=== PATIENT | female | born 1970 | race Caucasian/White ===

== ENCOUNTER 2018-09-24 06:39 | Emergency (ER) ==
[2018-09-24 06:49] VITALS: BP 122/88; TEMP 98.1; BMI 31.8
[2018-09-24] MEDS ORDERED: SODIUM CHLORIDE 1,000 ML IV STA ×3 (07:09→17:02)
[2018-09-24] MEDS ORDERED: MORPHINE 4 MG/ML SYRINGE IVP STA (07:09)
[2018-09-24] MEDS ORDERED: ZOFRAN 4 MG/2 ML IVP STA (07:09)
--- NOTE | 2018-09-24 07:57 | CT ---
Exam: CT abdomen pelvis without intravenous contrast. Comparison: None available. Reason for exam: Lower abdominal pain. FINDINGS: Image interpretation is limited by the lack of intravenous contrast administration. No pleural effusion, or focal consolidation in the partially imaged lung bases. The gallbladder has been removed. Heterogeneous appearing mass in the region of the pancreatic body measuring approximately 8 cm x 6.2 cm incompletely evaluated on this exam. No hydronephrosis, hydroureter or nephrolithiasis in either kidney. The spleen appears grossly unremarkable. The mass in the left upper abdomen abuts the left adrenal gland without a significant separation of t he fat plane. The right adrenal gland appears grossly unremarkable. No focal small bowel dilatation or transition point. The appendix is unremarkable. No intra-abdominal free air or pelvic free fluid. The bladder appears grossly unremarkable. No suspicious appearing osteoblastic or osteolytic lesions. Mildly prominent appearing soft tissue and periaortic, retroperitoneum incompletely evaluated on this exam. Impression: 1. Heterogeneous appearing mass in the region of the pancreatic body/upper abdomen. MRI pancreatic mass protocol with and without intravenous contrast is recommended prior to consultation for biopsy. 2. Nonspecific soft tissue in the periaortic, retroperitoneal region likely represents prominent lym ph nodes.
--- NOTE | 2018-09-24 08:23 | ED.PDOC ---
General ED Provider: Dr. THA CHARLES Chief Complaint: Abdominal Pain Stated Complaint: abdominal pain lower and central abdomen with some radiation of pain to the left shoulder associated with nausea .onset 1 day Time Seen by Physician: 07:00 (on arrival was seen with ramona Riggs) Mode of Arrival: Walk-In Information Source: Patient Exam Limitations: No limitations Nursing and Triage Documentation Reviewed and Agree: Yes Does patient meet sepsis criteria?: No System Inflammatory Response Syndrome: Not Applicable Sepsis Protocol: For patient's 13 years and over: Temp is 96.8 and below OR 101 and greater Pulse >90 BPM Resp >20/minute Acutely Altered Mental Status Are patient's symptoms suggestive of a new infection, such as: -Pneumonia -Skin, Soft Tissue -Endocarditis -UTI -Bone, Joint Infection -Implantable Device -Acute Abdominal Infection -Wound Infection -Meningitis -Blood Stream Catheter Infection -Unknown GI Complaint Exam - Abdominal Pain Complaint/Exam Onset: Gradual Duration: 1 DAY Symptoms Are: Still present Timing: Constant Initial Severity: Moderate Current Severity: Moderate Location of Pain: RLQ, LLQ, Epigastric Radiates To: Denies: Chest, Back, Flank, LLQ, RLQ, Inguinal Character: Reports: Cramping Aggravating: Reports: None Alleviating: Reports: None Associated Signs and Symptoms: Reports: Nausea. Denies: Diaphoresis, Fever, Cough, Chest pain, Dizziness, Back pain, Constipation, Blood in stool, Dysuria, Urinary frequency, Decreased urine output, Decreased appetite, Vaginal bleeding , Vaginal discharge, Vomiting, Diarrhea, Sore throat, Decreased activity AAA Risk Factors: Reports: None Cardiac Risk Factors: Reports: None Ectopic Risk Factors: Reports: None Ovarian Torsion Risk Factors: Reports: Reproductive age Surgical Obstruction Risk Factors: Reports: None Related Surgical History: Reports: None Patient Rh Status: Unknown Abdominal Findings: Present: None Differential Diagnoses: Appendicitis, Bowel Obstruction, Constipation, Pancreatitis, Irritable Bowel Syndrome, Renal Colic, Ureteral Stone, GB, Ovarian Cyst Quality Indicators for AMI: EKG in 10min. Quality Indicators for Cardiac Chest Pain: EKG in 10min. Quality Indicator For Non-Traumatic Chest Pain/Syncope: EKG Performed Review of Systems - Review Of Systems Constitutional: Reports: No symptoms Eyes: Reports: No symptoms Ears, Nose, Mouth, Throat: Reports: No symptoms Respiratory: Reports: No symptoms Cardiac: Reports: No symptoms GI: Reports: Abdominal pain, Nausea : Reports: No symptoms Musculoskeletal: Reports: No symptoms Skin: Reports: No symptoms Neurological: Reports: No symptoms Endocrine: Reports: No symptoms Hematologic/Lymphatic: Reports: No symptoms All Other Systems: Reviewed and Negative Past Medical History - Past Medical History Previously Healthy: Yes Endocrine: Reports: None Cardiovascular: Reports: None Respiratory: Reports: None Hematological: Reports: None Gastrointestinal: Reports: None Genitourinary: Reports: None Neuro/Psych: Reports: None Musculoskeletal: Reports: None Cancer: Reports: None Last Menstrual Period: PT HAS HAD A HYSTERECTOMY - Surgical History General Surgical History: Reports: None - Family History Family History: Reports: None - Social History Smoking Status: Never smoker Hx Substance Use: No Alcohol Screening: Occasionally - Immunizations Tetanus Shot up to Date: Yes Physical Exam - Physical Exam Appearance: Ill-appearing Ill-appearing: Mild Pain Distress: Moderate Eyes: MARILEE, EOMI, Conjunctiva clear ENT: Ears normal, Nose normal, Oropharynx normal Respiratory: Airway patent, Breath sounds clear, Breath sounds equal, Respirations nonlabored Cardiovascular: RRR, Pulses normal, No rub, No murmur GI/: Tender (ABDOMEN BUT NO REBOUND ) Musculoskeletal: Normal strength, ROM intact, No edema, No calf tenderness Skin: Warm, Dry, Normal color Neurological: Sensation intact, Motor intact, Reflexes intact, Cranial nerves intact, Alert, Oriented Psychiatric: Affect appropriate, Mood appropriate Re-Evaluation - Re-Evaluation Time of Re-Evaluation: 08:30 Status: Improved Vital Signs Stable: Yes Pain Level: 0 Appearance: NAD Lungs: Clear Skin: Warm and Dry Neuro: Alert and Oriented X3 CV: RRR Additional Comments: C.T. REPORT WWAS DISCUSSED VANI Physician Notification - Case Discussed Physician Notified: gato AGARWAL Time of Notification: 16:34 (TRANSFER ) Critical Care Note - Critical Care Note Total Time (mins): 0 Course - Course Hematology/Chemistry: 09/24/18 07:20 09/24/18 07:20 Orders, Labs, Meds: Lab Review 09/24/18 09/24/18 09/24/18 07:20 07:20 07:20 WBC 8.05 RBC 4.23 Hgb 13.8 Hct 38.7 MCV 91.5 MCH 32.6 H MCHC 35.7 H RDW Coeff of Armando 11.6 Plt Count 300 Immature Gran % (Auto) 0.2 Neut % (Auto) 63.3 Lymph % (Auto) 29.1 [place]eton % (Auto) 5.2 Eos % (Auto) 1.5 Baso % (Auto) 0.7 Immature Gran # (Auto) 0.0 Neut # (Auto) 5.1 Lymph # (Auto) 2.3 Teton # (Auto) 0.4 Eos # (Auto) 0.1 Baso # (Auto) 0.1 Sodium 135.7 Potassium 3.92 Chloride 102.8 Carbon Dioxide 24.0 Anion Gap 12.82 BUN 10.5 Creatinine 0.90 Estimated GFR (MDRD) 67.00 BUN/Creatinine Ratio 11.66 Glucose 120.1 H Lactic Acid Calcium 9.65 Total Bilirubin 0.77 AST 30.2 ALT 20.8 Alkaline Phosphatase 72.2 Total Protein 8.34 H Albumin 4.81 Globulin 3.53 Albumin/Globulin Ratio 1.36 Amylase 85.6 Lipase 128.6 Procalcitonin < 0.05 Urine Color Urine Clarity Urine pH Ur Specific Ralph Urine Protein Urine Glucose (UA) Urine Ketones Urine Blood Urine Nitrite Urine Bilirubin Urine Urobilinogen Ur Leukocyte Esterase Urine Microscopic RBC Ur Squamous Epith Cells Urine Bacteria Influ A Molecular Assay Influ B Molecular Assay 09/24/18 09/24/18 09/24/18 07:20 07:20 07:35 WBC RBC Hgb Hct MCV MCH MCHC RDW Coeff of Armando Plt Count Immature Gran % (Auto) Neut % (Auto) Lymph % (Auto) Teton % (Auto) Eos % (Auto) Baso % (Auto) Immature Gran # (Auto) Neut # (Auto) Lymph # (Auto) Teton # (Auto) Eos # (Auto) Baso # (Auto) Sodium Potassium Chloride Carbon Dioxide Anion Gap BUN Creatinine Estimated GFR (MDRD) BUN/Creatinine Ratio Glucose Lactic Acid 0.96 Calcium Total Bilirubin AST ALT Alkaline Phosphatase Total Protein Albumin Globulin Albumin/Globulin Ratio Amylase Lipase Procalcitonin Urine Color Yellow Urine Clarity Clear Urine pH 5.5 Ur Specific Ralph 1.010 Urine Protein Negative Urine Glucose (UA) Negative Urine Ketones Negative Urine Blood Trace-intact Urine Nitrite Negative Urine Bilirubin Negative Urine Urobilinogen 0.2 Ur Leukocyte Esterase Negative Urine Microscopic RBC 0-2 Ur Squamous Epith Cells 50-100 Urine Bacteria Trace Influ A Molecular Assay Negative by naat Influ B Molecular Assay Negative by naat Orders Category Date Time Status NPO REMINDER: IMAGING ONCE CARE 09/24/18 08:35 Completed NPO REMINDER: IMAGING ONCE CARE 09/24/18 13:08 Completed ED IV/MEDIPORT/POWERPORT .ONCE EMERGENCY 09/24/18 07:08 Active AMYLASE Stat LAB 09/24/18 07:20 Completed BLOOD CULTURE (ED ONLY) Stat LAB 09/24/18 07:20 Received CBC W/ AUTO DIFF Stat LAB 09/24/18 07:20 Completed COMPREHENSIVE METABOLIC PANEL Stat LAB 09/24/18 07:20 Completed FLU A/B MOLECULAR Stat LAB 09/24/18 07:20 Completed LACTIC ACID Stat LAB 09/24/18 07:20 Completed LIPASE Stat LAB 09/24/18 07:20 Completed MOLECULAR GROUP A STREP Stat LAB 09/24/18 07:20 Completed PROCALCITONIN Stat LAB 09/24/18 07:20 Completed URINALYSIS C & S IF INDICATED Stat LAB 09/24/18 07:35 Completed 0.9 % Sodium Chloride [Saline Flush] MEDS 09/24/18 07:08 Active 1 syr IVF PRN PRN Hydromorphone HCl [Dilaudid 0.5 mg/0.5 ml Syringe] MEDS 09/24/18 08:39 Discontinued 0.5 mg IVP ONCE STA Hydromorphone HCl [Dilaudid 0.5 mg/0.5 ml Syringe] MEDS 09/24/18 13:28 Discontinued 0.5 mg IVP ONCE STA Morphine Sulfate [Morphine 2 mg/ml Syringe] MEDS 09/24/18 10:32 Discontinued 4 mg IVP ONCE STA Morphine Sulfate [Morphine 4 mg/ml Syringe] MEDS 09/24/18 10:34 Discontinued 4 mg .ROUTE .STK-MED ONE Morphine Sulfate [Morphine 4 mg/ml Syringe] MEDS 09/24/18 07:09 Discontinued 4 mg IVP ONCE STA Ondansetron HCl/Pf [Zofran 4 mg/2 ml] MEDS 09/24/18 10:42 Discontinued 4 mg .ROUTE .STK-MED ONE Ondansetron HCl/Pf [Zofran 4 mg/2 ml] MEDS 09/24/18 07:09 Discontinued 8 mg IVP ONCE STA Promethazine HCl [Phenergan 25 mg/ml Vial] MEDS 09/24/18 15:57 Discontinued 25 mg .ROUTE .STK-MED ONE Promethazine HCl [Phenergan 25 mg/ml Vial] 25 mg MEDS 09/24/18 15:41 Discontinued 0.9 % Sodium Chloride [Sodium Chloride] 50 ml IV ONCE Sodium Chloride 0.9% [Sodium Chloride] 1,000 ml MEDS 09/24/18 07:09 Discontinued IV BOLUS Sodium Chloride 0.9% [Sodium Chloride] 1,000 ml MEDS 09/24/18 13:[address] ABDOMEN W/WO CONTRAST Stat RADS 09/24/18 13:[address] ABDOMEN/PELVIS WO CONTRAST Stat RADS 09/24/18 07:08 Completed MRI ABDOMEN W/WO CONTRAST Stat RADS 09/24/18 08:33 Ordered U/S PELVIS MYERS VAGINAL/NON OB Stat RADS 09/24/18 07:10 Completed Medications Generic Name Dose Route Start Last Admin Trade Name Freq PRN Reason Stop Dose Admin Sodium Chloride 1 syr 09/24/18 07:08 09/24/18 08:48 Saline Flush IVF 1 syr PRN PRN Administration To flush IV Discontinued Medications Generic Name Dose Route Start Last Admin Trade Name Freq PRN Reason Stop Dose Admin Hydromorphone HCl 0.5 mg 09/24/18 08:39 09/24/18 08:46 Dilaudid 0.5 Mg/0.5 Ml Syringe IVP 09/24/18 08:40 0.5 mg ONCE STA Administration Hydromorphone HCl 0.5 mg 09/24/18 13:28 09/24/18 13:33 Dilaudid 0.5 Mg/0.5 Ml Syringe IVP 09/24/18 13:29 0.5 mg ONCE STA Administration Sodium Chloride 1,000 mls @ 1,000 mls/hr 09/24/18 07:09 09/24/18 07:58 Sodium Chloride IV 09/24/18 08:08 1,000 mls/hr BOLUS STA Administration Sodium Chloride 1,000 mls @ 1,000 mls/hr 09/24/18 13:28 09/24/18 13:33 Sodium Chloride IV 09/24/18 14:27 1,000 mls/hr BOLUS STA Administration Promethazine HCl 25 mg/ Sodium 51 mls @ 75 mls/hr 09/24/18 15:41 09/24/18 16: 04 Chloride IV 09/24/18 16:21 75 mls/hr ONCE STA Administration Morphine Sulfate 4 mg 09/24/18 07:09 09/24/18 07:56 Morphine 4 Mg/Ml Syringe IVP 09/24/18 07:10 4 mg ONCE STA Administration Morphine Sulfate 4 mg 09/24/18 10:32 09/24/18 10:47 Morphine 2 Mg/Ml Syringe IVP 09/24/18 10:33 Not Given ONCE STA Ondansetron HCl 8 mg 09/24/18 07:09 09/24/18 07:56 Zofran 4 Mg/2 Ml IVP 09/24/18 07:10 8 mg ONCE STA Administration Vital Signs: Temp Pulse Resp BP Pulse Ox 09/24/18 06:40 98.1 F 95 H 20 122/88 98 Departure - Departure Time of Disposition: 16:34 Disposition: TSF SHORT-TRM HOSP Discharge Problem: Abdominal pain Condition: Good Pt referred to PMD for follow-up: Yes IPMP verified?: No Allergies/Adverse Reactions: Allergies No Known Drug Allergies Adverse Reaction (Verified 09/24/18 06:50) Home Medications: Ambulatory Orders Krill Oil 500 mg PO DAILY 09/24/18 Multivitamin 1 cap PO DAILY 09/24/18 Disposition Discussed With: Patient, Family
--- NOTE | 2018-09-24 08:26 | US ---
EXAM: Transvaginal pelvic ultrasound. History: Pelvic pain. Comparison: CT abdomen pelvis 09/24/2018 Technique: Multiple sonographic images through the pelvis were obtained. Color duplex Doppler was u sed to interrogate vascular flow. Findings: Status post hysterectomy. No free fluid in the cul-de-sac. The right ovary is not seen and likely h as been surgically removed. 2.8 cm x 3.0 cm x 3.0 cm cystic mass within the left ovary with internal echoes. There is blood flow within the surrounding left ovarian tissue. Impression: Cystic mass within the left ovary is probably a hemorrhagic cyst. Endometrioma is within the differential diagnosis. Recommend follow-up ultrasound in 6 months to document stability.
[2018-09-24] MEDS ORDERED: DILAUDID 0.5 MG/0.5 ML SYRINGE IVP STA ×3 (08:39→16:35)
[2018-09-24] MEDS ORDERED: MORPHINE 2 MG/ML SYRINGE IVP STA (10:32)
[2018-09-24] MEDS ORDERED: MORPHINE 4 MG/ML SYRINGE ONE (10:34)
[2018-09-24] MEDS ORDERED: ZOFRAN 4 MG/2 ML ONE (10:42)
--- NOTE | 2018-09-24 14:03 | CT ---
EXAM: CT of the abdomen with and without contrast History: Pancreatic mass. Comparison: CT abdomen pelvis 09/24/2018 Technique: Multiplanar CT images through the abdomen were obtained with and without the administrati on of IV contrast Findings: Lung bases are clear. No acute osseous abnormalities. No renal stones and no hydronephrosis. Status post cholecystectomy. No focal liver or splenic lesio ns. Adrenal glands are unremarkable. No renal masses. No perinephric stranding. No aortic aneurys m. No dilated loops of bowel. No free air and no ascites. 7.5 cm x 5.2 cm x 9.5 cm hypo enhancing mass within the left abdomen which is abutting or involving the pancreas and encasing the splenic vei n and splenic artery. Impression: Left abdominal mass as described above. The main differential diagnosis would include a hypoenhancing malignancy such as lymphoma or a benign vascular malformation such as lymphangioma or h emangioma. Recommend further evaluation with outpatient MRI of the abdomen with and without contrast . A biopsy may be needed.
[2018-09-24] MEDS ORDERED: PHENERGAN 25 MG/ML VIAL 25 MG in SODIUM CHLORIDE 50 ML IV STA (15:41)
[2018-09-24] MEDS ORDERED: PHENERGAN 25 MG/ML VIAL ONE (15:57)
[2018-09-24] MEDS ORDERED: POTASSIUM CHLORIDE PREMIX RUN 10 MEQ in PREMIX 100 ML WATER 1 BAG IV STA (17:02)
== END 2018-09-24 17:27 | disposition short-term general hospital (02) ==
LOC: ED 06:39 → EDBD 06:39 → ED 17:27
DX: R10.9 Unspecified abdominal pain (principal); R11.0 Nausea; R19.00 Intra-abdominal and pelvic swelling, mass and lump, unspecified site
CPT/HCPCS: 36415; 80053; 81001; 82150; 83605; 83690; 84145; 85025; 87040; 87502; 87651; 96361; 96365; 96375; 96376; 99284